=== PATIENT | female | born 1990 | race Caucasian/White ===

== ENCOUNTER 2019-01-09 13:44 | Outpatient (CLI) | payer BC ==
[~2019-01-09] VITALS: Ht 160 cm; Wt 96.1 kg
[~2019-01-09 13:44] MED LIST: PNV11TAB PO
[2019-01-09 13:53] VITALS: Ht 160 cm; Wt 96.1 kg
== END 2019-01-09 15:10 | disposition home or self-care (01) ==
LOC: L-D 13:44 → OBT 13:44
PROVIDERS: ATTEND Obstetrics & Gynecology
DX: O36.8330 Maternal care for abnormalities of the fetal heart rate or rhythm, third trimester, not applicable or unspecified (principal); O99.613 Diseases of the digestive system complicating pregnancy, third trimester; K50.90 Crohn's disease, unspecified, without complications; Z3A.38 38 weeks gestation of pregnancy
CPT/HCPCS: 76818; G0463